=== PATIENT | female | born 1985 | race Asian ===

== ENCOUNTER 2017-12-28 00:19 | Inpatient (IN) | payer SELFPAY ==
[~2017-12-28] VITALS: Ht 161 cm; Wt 71.7 kg
[2017-12-28] MEDS: LACTATED RINGERS 1,000 ML IV SCH ×3 (01:02→07:55)
[2017-12-28 01:05] LABS: APPEARANCE,URINE CLOUDY (CLEAR); BILIRUBIN,URINE NEGATIVE (NEGATIVE); BLOOD, URINE TRACE-I (NEGATIVE); COLOR,URINE YELLOW (YELLOW); LEUKOCYTE ESTERASE ,URINE TRACE (NEGATIVE); NITRITE, URINE NEGATIVE (NEGATIVE); UGLUCOSE NEGATIVE (NEGATIVE)
[2017-12-28 01:06] LABS: BASOPHILS % (AUTO) 0.4 % (0.0-2.0); EOSINOPHILS # (AUTO) 0.1 K/uL (0-0.4); EOSINOPHILS % (AUTO) 1.2 % (0.0-4.0); HEMATOCRIT 37.1 % (36-48); HEMOGLOBIN 12.3 g/dL (12.0-16.0); LYMPHOCYTES # (AUTO) 1.9 K/uL (2.5-16.5); MEAN CORPUSCULAR HEMOGLOBIN 29 pg (27-31); MEAN CORPUSCULAR HGB CONC 33 g/dL (33-37); MONOCYTES # (AUTO) 0.6 K/uL (0.8-1.0); MONOCYTES % (AUTO) 7.3 % (1.7-9.3); NEUTROPHILS # (AUTO) 5.8 K/uL (1.8-7.7); NEUTROPHILS % (AUTO) 68.1 % (42.2-75.2); PLATELET COUNT (AUTO) 176 K/uL (140-450); RED BLOOD CELL COUNT(AUTO) 4.17 MIL/uL (4.20-5.40); RED CELL DISTRIBUTION WIDTH 19.5 % (11.6-13.7); WHITE BLOOD COUNT (AUTO) 8.5 K/uL (4.8-10.8)
[2017-12-28] MEDS ORDERED: FERR325E14 PO (02:33)
[2017-12-28] MEDS ORDERED: PREN-546 PO (02:33)
[2017-12-28 02:34] VITALS: BP 127/79
[2017-12-28 04:14] LABS: RBC,URINE 3-10 (FEW) /HPF (0-5); WBC,URINE 16-25 (MOD) /HPF (0-5)
[2017-12-28] MEDS ORDERED: ceFAZolin 1,000 MG VIAL ONE (04:15)
[2017-12-28] MEDS ORDERED: TRIMETHOBENZAMIDE 200 MG/2 ML SYR IM PRN (05:25)
[2017-12-28] MEDS ORDERED: MEASLES, MUMPS, AND RUBELLA 1 VIAL SQVAC PRN (05:25)
[2017-12-28] MEDS ORDERED: TEMAZEPAM 15 MG CAP PO PRN (05:25)
[2017-12-28] MEDS ORDERED: IBUPROFEN 800 MG TAB PO PRN (05:25)
[2017-12-28] MEDS ORDERED: METHYLERGONOVINE 0.2 MG/ML AMP IM PRN (05:25)
[2017-12-28] MEDS ORDERED: oxyCODONE/APAP 5/325 MG 1 TAB TAB PO PRN (05:25)
[2017-12-28] MEDS ORDERED: MIDAZOLAM 2 MG/2 ML VIAL ONE (05:31)
[2017-12-28] MEDS ORDERED: MORPHINE PRES FREE 10 MG/10 ML AMP IV ONE (05:32)
[2017-12-28] MEDS ORDERED: BUPIVACAINE-MPF 0.5% 30 ML VIAL INJ ONE (05:32)
[2017-12-28] MEDS ORDERED: SUCCINYLCHOLINE CHLORIDE 200 MG/10 ML VIAL IVP ONE (05:35)
[2017-12-28] MEDS ORDERED: PROPOFOL 200 MG/20 ML VIAL IV ONE (05:35)
[2017-12-28] MEDS ORDERED: OXYTOCIN 10 UNITS/ML VIAL ONE (05:56)
[2017-12-28] MEDS ORDERED: TRIAMCINOLONE 40 MG/ML 5ML VIAL ONE (06:06)
[2017-12-28] MEDS ORDERED: MEPERIDINE 50 MG/ML SYR ONE (06:23)
[2017-12-28] MEDS ORDERED: MEPERIDINE 25 MG/ML SYR IVP PRN (06:40)
[2017-12-28] MEDS ORDERED: NALOXONE 0.4 MG/ML VIAL IVP PRN ×3 (06:40)
[2017-12-28] MEDS ORDERED: OXYTOCIN 20 UNITS in LACTATED RINGERS 1,000 ML IV SCH (06:40)
[2017-12-28] MEDS ORDERED: diphenhydrAMINE 50 MG/ML VIAL IVP PRN ×2 (06:40)
[2017-12-28] MEDS ORDERED: ONDANSETRON 4 MG/2 ML VIAL IVP PRN ×2 (06:40)
[2017-12-28] MEDS ORDERED: HYDROmorphone 1 MG/ML AMP IVP PRN (06:40)
[2017-12-28] MEDS ORDERED: NALBUPHINE 10 MG/ML AMP IVP PRN (06:40)
[2017-12-28] MEDS ORDERED: OXYTOCIN 20 UNITS/LR PREMIX 1,000 ML IV ONE (07:07)
[2017-12-28] MEDS ORDERED: ONDANSETRON 4 MG/2 ML VIAL ONE (07:12)
[2017-12-28] MEDS: KETOROLAC 30 MG/ML VIAL IM/IVP SCH ×2 (11:33→18:06)
[2017-12-28] MEDS: OXYTOCIN 20 UNITS in LACTATED RINGERS 1,000 ML IV SCH (18:07)
[2017-12-28] MEDS: DOCUSATE SOD/SENNA 50/8.6 MG 1 TAB PO SCH (21:20)
[2017-12-29] MEDS: KETOROLAC 30 MG/ML VIAL IM/IVP SCH ×2 (00:02→05:42)
[2017-12-29] MEDS ORDERED: OXYTOCIN 20 UNITS/LR PREMIX 1,000 ML IV ONE (01:27)
[2017-12-29] MEDS: OXYTOCIN 20 UNITS in LACTATED RINGERS 1,000 ML IV SCH (01:32)
[2017-12-29 06:40] LABS: BASOPHILS % (AUTO) 0.2 % (0.0-2.0); EOSINOPHILS % (AUTO) 0.1 % (0.0-4.0); HEMATOCRIT 31.9 % (36-48); HEMOGLOBIN 10.5 g/dL (12.0-16.0); LYMPHOCYTES # (AUTO) 1.5 K/uL (2.5-16.5); LYMPHOCYTES % (AUTO) 11.1 % (20.5-51.1); MEAN CORPUSCULAR HEMOGLOBIN 29 pg (27-31); MEAN CORPUSCULAR HGB CONC 33 g/dL (33-37); MEAN CORPUSCULAR VOLUME 88.9 fL (80-94); MONOCYTES # (AUTO) 0.7 K/uL (0.8-1.0); MONOCYTES % (AUTO) 5.2 % (1.7-9.3); NEUTROPHILS # (AUTO) 10.9 K/uL (1.8-7.7); NEUTROPHILS % (AUTO) 83.4 % (42.2-75.2); PLATELET COUNT (AUTO) 144 K/uL (140-450); RED BLOOD CELL COUNT(AUTO) 3.59 MIL/uL (4.20-5.40); RED CELL DISTRIBUTION WIDTH 19.4 % (11.6-13.7); WHITE BLOOD COUNT (AUTO) 13.1 K/uL (4.8-10.8)
[2017-12-29] MEDS: SIMETHICONE 80 MG TAB.CHEW PO PRN (12:58)
[2017-12-29] MEDS ORDERED: BETHANECHOL 25 MG TAB PO PRN (15:25)
[2017-12-29] MEDS: DOCUSATE SOD/SENNA 50/8.6 MG 1 TAB PO SCH (20:50)
[2017-12-29] MEDS: HYDROcodone/APAP 5/325 MG 1 TAB TAB PO PRN (20:55)
[2017-12-30] MEDS: HYDROcodone/APAP 5/325 MG 1 TAB TAB PO PRN ×3 (08:07→20:57)
[2017-12-30] MEDS: DOCUSATE SOD/SENNA 50/8.6 MG 1 TAB PO SCH (20:56)
[2017-12-30] MEDS: SIMETHICONE 80 MG TAB.CHEW PO PRN (20:58)
[2017-12-31] MEDS ORDERED: SODIUM PHOSPHATE 118 ML ENEM RC PRN (08:45)
[2017-12-31] MEDS ORDERED: BISACODYL 5 MG TABEC PO PRN (08:45)
== END 2017-12-31 15:35 | disposition home or self-care (01) | DRG 766 ==
LOC: MLD 00:19 → MFCC 07:59
PROVIDERS: ADMIT Obstetrics & Gynecology; ATTEND Obstetrics & Gynecology
PROC: 10D00Z1 Extraction of Products of Conception, Low, Open Approach (ICD-10-PCS; principal; 2017-12-28 05:30)
PROC: 3E0234Z Introduction of Serum, Toxoid and Vaccine into Muscle, Percutaneous Approach (ICD-10-PCS; 2017-12-30)
DX: O34.211 Maternal care for low transverse scar from previous cesarean delivery (principal); O69.81X0 Labor and delivery complicated by cord around neck, without compression, not applicable or unspecified; Z37.0 Single live birth; Z3A.39 39 weeks gestation of pregnancy; Z23 Encounter for immunization
CPT/HCPCS: 36415; 51702; 81001; 85025; 86592; 86886; 86900; 86901; 87086; 90715; J0330; J0690; J1885; J2175; J2250; J2270; J2405; J2590; J2704; J3301; J3490; J7060; J7120